=== PATIENT | female | born 1970 | race Caucasian/White ===

== ENCOUNTER 2019-02-01 16:57 | Outpatient (REF) | payer MEDICAID, SELFPAY ==
[2019-02-01 19:22] LABS: Albumin 3.9 g/dL (3.4-5.0); Anion Gap 10.1 mmol/L (3-11); BUN 9 mg/dL (7-18); CO2 27.9 mmol/L (21.0-32.0); CREATININE 0.77 mg/dL (0.55-1.02); Calcium 9.2 mg/dL (8.5-10.1); Chloride 103 mmol/L (98-107); Glucose 101 mg/dL (70-100); Magnesium 1.7 mg/dL (1.8-2.4); PHOSPHORUS 3.7 mg/dL (2.6-4.7); Potassium 4.3 mmol/L (3.5-5.1); Sodium 141 mmol/L (136-145)
== END 2019-02-01 17:17 ==
LOC: NCHCN 16:57
PROVIDERS: PCP Internal Medicine; Visit Provider Internal Medicine
DX: R63.4 Abnormal weight loss (principal)
CPT/HCPCS: 80069; 83735

== ENCOUNTER 2019-02-05 15:19 | Outpatient (REF) | payer MEDICAID, SELFPAY ==
[2019-02-05 20:03] LABS: COMMENT (LAB VIEW ONLY) 112.39 mg/dL; Microalb ug/mg Crea 4.9 ug/mg Cr
== END 2019-02-05 15:39 ==
LOC: NCHCN 15:19
PROVIDERS: PCP Internal Medicine; Visit Provider Nurse Practitioner Family
DX: E11.9 Type 2 diabetes mellitus without complications (principal)
CPT/HCPCS: 82043; 82570

== ENCOUNTER 2019-05-24 20:28 | Outpatient (REF) | payer MEDICAID, SELFPAY ==
[2019-05-27 11:16] LABS: Syphilis Serology (RPR) Negative (Negative)
[2019-05-27 12:34] LABS: HIV-1/2 Ag & Ab Screen Negative (Negative); Hepatitis C Ab w Rflx HCV PCR Negative (Negative)
[2019-05-27 15:10] LABS: Chlamydia Result Negative (Negative)
[2019-05-27 15:49] LABS: GC Result Negative (Negative)
== END 2019-05-24 20:48 ==
LOC: NCHCN 20:28
PROVIDERS: PCP Internal Medicine; Visit Provider Nurse Practitioner Family
DX: Z11.3 Encounter for screening for infections with a predominantly sexual mode of transmission (principal); Z11.4 Encounter for screening for human immunodeficiency virus [HIV]; Z11.59 Encounter for screening for other viral diseases
CPT/HCPCS: 86803; 87389; 87491; 87591; 86592

== ENCOUNTER 2020-04-23 09:25 | Outpatient (REF) | payer MEDICAID, SELFPAY ==
[2020-04-28 17:49] LABS: Patient Race White; SARS-CoV-2 RNA Undetected (Undetected); SARS-CoV-2 Specimen Source Nasal
== END 2020-04-23 09:45 ==
LOC: NCHCN 09:25
PROVIDERS: PCP Nurse Practitioner Family; Visit Provider Nurse Practitioner Family
DX: Z11.59 Encounter for screening for other viral diseases (principal)
CPT/HCPCS: U0003

== ENCOUNTER 2020-05-01 15:58 | Outpatient (REF) | payer MEDICAID, SELFPAY ==
[2020-05-01 19:26] LABS: ALT 48 U/L (14-59); AST 34 U/L (15-37); Albumin 4.1 g/dL (3.4-5.0); Alkaline Phosphatase 97 U/L (46-116); Anion Gap 6.9 mmol/L (3-11); BUN 15 mg/dL (7-18); Bilirubin, Total 0.4 mg/dL (0.2-1.0); CO2 26.1 mmol/L (21.0-32.0); CREATININE 0.85 mg/dL (0.55-1.02); Calcium 9.2 mg/dL (8.5-10.1); Chloride 100 mmol/L (98-107); Glucose 369 mg/dL (74-106); LDL CHOLESTEROL 123 mg/dL (<100); Potassium 4.6 mmol/L (3.5-5.1); Sodium 133 mmol/L (136-145); Total Protein 7.3 g/dL (6.4-8.2)
== END 2020-05-01 16:18 ==
LOC: NCHCN 15:58
PROVIDERS: PCP Nurse Practitioner Family; Visit Provider Internal Medicine
DX: K76.0 Fatty (change of) liver, not elsewhere classified (principal); I10 Essential (primary) hypertension; F17.210 Nicotine dependence, cigarettes, uncomplicated; E11.9 Type 2 diabetes mellitus without complications
CPT/HCPCS: 80053; 83721; 84443

== ENCOUNTER 2020-06-24 15:32 | Outpatient (REF) | payer MEDICAID, SELFPAY ==
[2020-06-24 21:24] LABS: Hemoglobin A1C 11.4 % (<5.7)
== END 2020-06-24 15:52 ==
LOC: NCHCN 15:32
PROVIDERS: PCP Nurse Practitioner Family; Visit Provider Nurse Practitioner Family
DX: E11.9 Type 2 diabetes mellitus without complications (principal)
CPT/HCPCS: 83036

== ENCOUNTER → 2021-10-06 01:39 | Outpatient (CLI) | payer MEDICAID, SELFPAY | PROVIDERS: PCP Nurse Practitioner Family; Visit Provider Internal Medicine ==

== ENCOUNTER 2021-12-21 03:02 | Outpatient (CLI) | payer MEDICAID, SELFPAY ==
--- NOTE | 2021-12-21 13:00 | NS.NUTBLAN_ITS ---
Mahogany and her attended diabetes self education session today. 5'3 `188 lbs BMI: 33 has gained about 20 lbs since she stopped smoking DM meds: 51 units lantus HS, 1000 mg metformin BID, 5 mg glipizide qd Carb to Insulin ratio: 1:10 Correction Factor: 1:35 Most recent A1C (06/24/21): 11.4% Diet Recall: B: 4 slices negron L: chicken darren with swisshome D: mainor Carter on Bun Mahogany reports that she would like to improve her glycemia management and lose weight. She recently started on lantus at HS and has been monitoring her blood sugars about 4 x daily with glucometer. Reports highest blood sugar was 340 mg/dl this week- post prandially after eating a high carb meal. She has not had any hypoglycemia. She would like to get a continuous glucose monitor help her maintain tighter blood sugar control. Mahogany reports that she has gastroparesis and is followed by [facility] gastroenterology. She was unable to complete a barium swallow due to nausea/vomiting with prep. She also reports she has a bowel movement about every 2-3 weeks. She has tried mirilax in past it did not work. She recently started taking metamucil 1 scoop 3 x daily. Session today included placing and educating Mahogany and her on the DexGermmatters 6 continuous glucose monitor. We programed her [employer] phone to alert her when blood sugars are less than 70 mg or higher than 250 mg/dl. Appointment made for 12/30/21 at 3 pm to review glycemic patterns. Session also included reviewed how to count carbs and how to follow a lower carb diet with emphasis on lean protein, non starchy vegetables and healthy fats. Mahogany reports that she is able to eat salads, steak and negron without n/v currently. Her gastroparesis flares up at times and then she is unable even to keep fluids down. Plan: follow up 12/30/21 at 3 pm for data down load- will fax results to PCP at [place] Mahogany to follow up on Barium Swallow
== END 2021-12-21 03:03 | disposition home or self-care (01) ==
LOC: DS 03:02
PROVIDERS: PCP Nurse Practitioner Family; Visit Provider Dietitian, Registered
DX: E11.9 Type 2 diabetes mellitus without complications (principal); Z79.4 Long term (current) use of insulin; Z79.84 Long term (current) use of oral hypoglycemic drugs; Z71.3 Dietary counseling and surveillance
CPT/HCPCS: 97802

== ENCOUNTER 2021-12-30 04:34 | Outpatient (CLI) | payer MEDICAID, SELFPAY ==
--- NOTE | 2021-12-30 14:00 | NS.NUTBLAN_ITS ---
Ant returns for follow up visit and data download after wearing a Dexcom 6 Continuous Glucose Monitor. DM meds: 51 units lantus HS, 1000 mg metformin BID, 5 mg glipizide qd Diet Recall: B: scone and fruit, L: 1.5 cup mac n cheese, hot dog, D: cereal. High carb meal choices No c/o n/v or other gastroparesis symptoms. Reports a lot of stress in last week and that she has been eating candy through out day. Since stopping smoking has started to snack on sugary foods during day. Ambulatory Glucose Profile: ( 12/30/21-12/21/21) Average Glucose: 213 mg/dl Time in Range (70-180 mg/dl): 39.5% Goal > 70% 181-250 mg/dl: 60.3% Goal: <25% >250 mg/dl: 33.8% Goal: <4% Continuous glucose monitor indicates fluctuating blood sugars with excessive hyperglycemia. Today's session reviewed importance of carb counting at meals and limiting carbs to no more than 30 grams per meal. Would benefit from meal time insulin. Reviewed meal plans and serving sizes. In view of weight gain since stopping smoking (30 lbs up), recommend switching from lantus to levemir once daily and adding Jardiance- once daily. In view of hx of gastroparesis, GLP1ra would be contraindicated. Session today helped Mahogany remove sensor and place new sensor. Will need script for sensors going forward. Insurance will only cover sensors if using insulin 4 times daily. Plan: 1. 5 units rapid acting insulin TID 2. Switch to Levemir- 50 units HS 3. Add Jardiance up to 25 mg qd 4. d/c glyburide as will contribute to weight gain 5. continue 1000 mg metformin BID 6. needs script for 3 Dexcom 6 sensors q month, 1 Dexcom 6 transmitter q 90 days. Does not need Dexcom reader as using smart phone Will follow up in next 2 weeks.
== END 2021-12-30 04:35 | disposition home or self-care (01) ==
LOC: DS 04:34
PROVIDERS: PCP Nurse Practitioner Family; Visit Provider Dietitian, Registered
DX: E11.9 Type 2 diabetes mellitus without complications (principal); Z79.4 Long term (current) use of insulin; Z79.84 Long term (current) use of oral hypoglycemic drugs; Z71.3 Dietary counseling and surveillance
CPT/HCPCS: 97803

== ENCOUNTER 2022-01-03 17:35 | Outpatient (REF) | payer MEDICAID, SELFPAY ==
[2022-01-03 19:26] LABS: ALT 24 U/L (14-59); AST 12 U/L (15-37); Albumin 3.6 g/dL (3.4-5.0); Alkaline Phosphatase 79 U/L (46-116); Anion Gap 10.2 mmol/L (3-11); BUN 18 mg/dL (7-18); Bilirubin, Total 0.2 mg/dL (0.2-1.0); CO2 25.8 mmol/L (21.0-32.0); CREATININE 0.8 mg/dL (0.55-1.02); Chloride 101 mmol/L (98-107); Glucose 382 mg/dL (74-106); Potassium 4.5 mmol/L (3.5-5.1); Sodium 137 mmol/L (136-145); Total Protein 6.5 g/dL (6.4-8.2)
[2022-01-03 19:46] LABS: Hemoglobin A1C 9.2 % (<5.7)
== END 2022-01-03 17:36 | disposition home or self-care (01) ==
LOC: NCHCN 17:35
PROVIDERS: PCP Nurse Practitioner Family; Visit Provider Internal Medicine
DX: E11.8 Type 2 diabetes mellitus with unspecified complications (principal)
CPT/HCPCS: 80053; 83036

== ENCOUNTER 2022-01-12 01:48 | Outpatient (CLI) | payer MEDICAID, SELFPAY ==
--- NOTE | 2022-01-12 15:00 | NS.NUTBLAN_ITS ---
Mahogany and return for data down load and review of blood sugars in last 10 days. Dexcom G6 sensor fell off on 01/09/22. Has been taking finger sticks daily. Ambulatory Glucose Profile (12/27/21-01/09/22) Average Blood Sugar: 245 mg/dl Time in Range: 70-180 mg/dl: 30% Not at [facility] 181-250 mg/dl: 21% Not at [employer] >250 m% Not at [employer] no hypoglycemia DM meds: 5 units novolog at meals (started 01/05/22), 50 units Levemire at HS (started 01/05/22), 10 mg Jardiance (started 01/05/22), 1000 mg metformin BID, glyburide discontinued 01/05/22. Diet Recall: Donut at B, Mc Chicken for L, typically does not eat dinner- snacks during evening on robb crackers, granola bars. 4-5 nights a week sleep walks and eats meals. Finds wrappers in morning with no memory of eating. Has Gastric Emptying Study at [facility] 01/13/22, Endocrinology at [facility] appt in February- unable to see her sooner Reviewed glycemic data with Mahogany. She reports her high blood sugars have not changed since adding new medication regime. She admits to forgetting meal time insulin and she often does not take if she is not sitting down for meal. Typically does not eat dinner as gastric empyting seems slower then so she ends up just eating fat free carbs that are easily digested. Many meal choices are based on ease of digestion and therefore elevating blood sugars. Do not recommend adjusting insulin until Mahogany able to get more Dexcom G6 sensors. She is taking multiple daily injections and therefore they will be covered on [place]. Once she has CGM data, recommend adjust insulin as follows: Increase Levemir by 5 units (10%) every 3 days until fasting blood sugars less than 150 mg/dl. Increase meal time insulin by 1 unit every 3 days until 2 hour post prandial level less than 180 mg/dl Increase Jardiance to max dose of 25 mg q d Hoping that PCP can write script for 3 Dexcom G6 sensors per month as won't be able to see [facility] endo for another 8 weeks. Uses iphone as reader. Will follow up by phone on 01/14/22 to discuss gastric emptying results.
--- NOTE | 2022-01-18 10:58 | DIABASSESS_ITS ---
Date of service: 01/18/22 Time of Service: 10:58 Diabetes Note Reason for Visit: dm NOTE: Spoke to Mahogany on phone today. Unable to complete [facility] gastric emptying study last week as had to hypoglycemia (40s) when woke up and ate breakfast. DM meds: 44 u levemir, 5 units novolog TID, 10 mg Jardiance. Mahogany reports frequent blood sugars <70 mg/dl in last week, has adjusted levemir per Dr. Cassidy. Reviewed importance of adding additional novolog at high carb meals (upto 10 units) instead of adding more levemir. Verbalized understanding. Has no dexcom sensors, does check BS QID but has been having frequent hypoglycemia. Dexcom sensor script at pharmacy per Mahogany, just needs pre auth. Will follow up with Mor Guillory RN today. Will follow up with Mahogany next week. Time Spent in Nutritional Counseling and Treatment: 10
== END 2022-01-12 01:49 | disposition home or self-care (01) ==
LOC: DS 01:48
PROVIDERS: PCP Nurse Practitioner Family; Visit Provider Dietitian, Registered
DX: E11.9 Type 2 diabetes mellitus without complications (principal); Z79.4 Long term (current) use of insulin; Z79.84 Long term (current) use of oral hypoglycemic drugs; Z71.3 Dietary counseling and surveillance
CPT/HCPCS: 97803

== ENCOUNTER 2022-04-14 16:35 | Outpatient (REF) | payer MEDICAID, SELFPAY ==
[2022-04-14 19:05] LABS: HCT 45.1 % (36.0-46.0); HGB 15.2 g/dL (11.2-15.7); MCH 30.1 pg (27.0-33.0); MCHC 33.7 % (32.0-36.0); MCV 89 fL (80-95); MPV 9.3 fL (8.0-11.0); Platelet Count 463 10^3/uL (130-400); RBC 5.05 10^6/uL (3.93-5.22); RDW 12.7 % (11.7-14.6); RDW-SD 41.3 fL; WBC 10.91 10^3/uL (4.4-10.8)
[2022-04-14 19:26] LABS: ALT 25 U/L (14-59); AST 23 U/L (15-37); Alkaline Phosphatase 88 U/L (46-116); Anion Gap 10.6 mmol/L (3-11); BUN 14 mg/dL (7-18); Bilirubin, Total 0.3 mg/dL (0.2-1.0); CO2 27.4 mmol/L (21.0-32.0); CREATININE 0.7 mg/dL (0.55-1.02); Calcium 9.4 mg/dL (8.5-10.1); Chloride 103 mmol/L (98-107); Estimated GFR 105.95 (mL/min/1.73m2); Glucose 71 mg/dL (74-106); Potassium 4.1 mmol/L (3.5-5.1); Sodium 141 mmol/L (136-145)
== END 2022-04-14 16:36 | disposition home or self-care (01) ==
LOC: NCHCN 16:35
PROVIDERS: PCP Nurse Practitioner Family; Visit Provider Internal Medicine
DX: K92.0 Hematemesis (principal)
CPT/HCPCS: 80053; 85027

== ENCOUNTER 2022-12-28 11:41 | Outpatient (REF) | payer MEDICAID, SELFPAY ==
[2022-12-28 21:28] LABS: COMMENT (LAB VIEW ONLY) 22.02 mg/dL
== END 2022-12-28 11:42 | disposition home or self-care (01) ==
LOC: NCHCN 11:41
PROVIDERS: PCP Nurse Practitioner Family; Visit Provider Internal Medicine
DX: E11.9 Type 2 diabetes mellitus without complications (principal)
CPT/HCPCS: 82043; 82570

== ENCOUNTER 2024-04-03 14:49 | Outpatient (REF) | payer MEDICAID, SELFPAY ==
[2024-04-03 20:01] LABS: ALT 22 U/L (14-59); AST 21 U/L (15-37); Albumin 3.9 g/dL (3.4-5.0); Alkaline Phosphatase 86 U/L (46-116); Anion Gap 6.3 mmol/L (3-11); BUN 11 mg/dL (7-18); Bilirubin, Total 0.32 mg/dL (0.2-1.0); CO2 31.7 mmol/L (21.0-32.0); CREATININE 1.1 mg/dL (0.55-1.02); Calcium 9.8 mg/dL (8.5-10.1); Calculated LDL 94 mg/dL (<100); Chloride 109 mmol/L (98-107); Cholesterol 172 mg/dL (<200); Estimated GFR 60.84 (mL/min/1.73m2); Glucose 146 mg/dL (74-106); HDL Cholesterol 59 mg/dL (40-60); Potassium 5.3 mmol/L (3.5-5.1); Sodium 147 mmol/L (136-145); TSH 0.63 uIU/Ml (0.36-3.74); Total Protein 7.6 g/dL (6.4-8.2); Triglyceride 95 mg/dL (<150)
== END 2024-04-03 14:50 | disposition home or self-care (01) ==
LOC: NCHCN 14:49
PROVIDERS: PCP Nurse Practitioner Family; Visit Provider Internal Medicine
DX: I10 Essential (primary) hypertension (principal); E78.5 Hyperlipidemia, unspecified
CPT/HCPCS: 80053; 80061; 84443

== ENCOUNTER 2025-05-14 15:58 | Outpatient (CLI) | payer MEDICAID, SELFPAY ==
--- NOTE | 2025-05-14 14:15 | DI.RAD_ITS ---
Exam(s) XR SHOULDER LT COMPLETE 2+V EXAM: XR SHOULDER LT COMPLETE 2+V CLINICAL HISTORY: LEFT SHOULDER PAIN. TECHNIQUE: 2D digital imaging was performed. Two views. COMPARISON: No exams were available for comparison FINDINGS: BONES: No acute fracture is present. No bony destructive lesion is seen. JOINTS: No dislocation present. The glenohumeral joint space is maintained. There is no visible spurring at the acromioclavicular joint. There is mild spurring at the tip of the acromion. SOFT TISSUE: Normal. IMPRESSION: Minimal spurring at the tip of the acromion, otherwise unremarkable radiographs of the left shoulder. DATA REPOSITORY: RADIATION DOSE DELIVERED:
== END 2025-05-14 15:59 | disposition home or self-care (01) ==
LOC: DIORS 15:58
PROVIDERS: PCP Nurse Practitioner Family; Visit Provider Student in an Organized Health Care Education/Training Program
DX: M25.512 Pain in left shoulder (principal); M25.712 Osteophyte, left shoulder
CPT/HCPCS: 73030